=== PATIENT | female | born 1950 | race Caucasian/White ===

== ENCOUNTER 2017-10-13 09:09 | Day surgery (SDC) | payer OTHER, MEDICAID ==
[2017-10-13] MEDS ORDERED: PROPOFOL 0 ML (10:20)
[2017-10-13] MEDS ORDERED: PROPOFOL 20 ML ×2 (10:20→11:11)
[2017-10-13] MEDS ORDERED: LIDOCAINE 2% (SDV) 5 ML INJ (11:11)
== END 2017-10-13 12:55 | disposition home or self-care (01) ==
LOC: GIL 09:09
DX: K29.30 Chronic superficial gastritis without bleeding (principal); K64.8 Other hemorrhoids; E78.5 Hyperlipidemia, unspecified; E11.9 Type 2 diabetes mellitus without complications; J45.909 Unspecified asthma, uncomplicated; E66.9 Obesity, unspecified; Z68.34 Body mass index [BMI] 34.0-34.9, adult; I10 Essential (primary) hypertension; E03.9 Hypothyroidism, unspecified
CPT/HCPCS: 43239; 82962